=== PATIENT | female | born 1960 | race Two or more races ===

== ENCOUNTER 2018-11-15 09:26 | Emergency (ER) | payer BC, MEDICAID ==
--- NOTE | 2018-11-15 09:56 | ER Document Report ---
ED Oral Problem - General Chief Complaint: Toothache Stated Complaint: MOUTH PAIN Time Seen by Provider: 11/15/18 09:42 Mode of Arrival: Ambulatory Information source: Patient Notes: Patient is a 58-year-old female comes emergency room with 2-day onset of left lower dental pain with swelling. Patient states that the chin area on the left side swelled up really bad yesterday and she has some diffuse pain in the lower area. She has been putting on Orajel which relieves it for a few minutes then it returns. She denies any fevers at this present time. Patient states she has a history of hypertension but she only takes home remedies for it. She is a traveling person going between [place] and [place]. She states that her medical records are not caught up with her yet. TRAVEL OUTSIDE OF THE [place] IN LAST 30 DAYS: No - HPI Patient complains to provider of: Jaw pain, Swelling of jaw Onset: Other - 2 days Onset: Gradual Quality of pain: Sharp, Throbbing Pain Level: 4 Swollen jaw/face: Mild Associated symptoms: Chills, Facial pain, Toothache Worsened by: Heat Relieved by: Orajel Similar symptoms previously: Yes Recently seen / treated by doctor/dentist: No - Related Data Allergies/Adverse Reactions: ampicillin [Ampicillin] Allergy (Verified 11/15/18 09:28) swelling clindamycin [Clindamycin] Allergy (Verified 11/15/18 09:28) swelling morphine [Morphine] Allergy (Verified 11/15/18 09:28) Hives Penicillins Allergy (Verified 11/15/18 09:28) unknown Sulfa (Sulfonamide Antibiotics) Allergy (Verified 11/15/18 09:28) swelling Past Medical History - General Information source: Patient - Social History Smoking Status: Current Some Day Smoker Cigarette use (# per day): Yes - Socially when stressed Chew tobacco use (# tins/day): No Smoking Education Provided: Yes Frequency of alcohol use: Rare Drug Abuse: None Lives with: Alone Family History: Reviewed & Not Pertinent, CAD - Past Medical History Cardiac Medical History: Reports: Hx Hypercholesterolemia, Hx Hypertension Denies: Hx Heart Attack Pulmonary Medical History: Reports: Hx Sleep Apnea Denies: Hx Asthma Neurological Medical History: Denies: Hx Cerebrovascular Accident, Hx Seizures Endocrine Medical History: Reports: Hx Diabetes Mellitus Type 2 - diet con trolled new diagnosis GI Medical History: Denies: Hx Hepatitis, Hx Hiatal Hernia, Hx Ulcer Infectious Medical History: Denies: Hx Hepatitis Past Surgical History: Reports: Hx Hysterectomy. Denies: Hx Mastectomy, Hx Open Heart Surgery, Hx Pacemaker Review of Systems - Review of Systems Constitutional: No symptoms reported EENT: See HPI, Mouth swelling, Dental problem Cardiovascular: No symptoms reported Respiratory: No symptoms reported Gastrointestinal: No symptoms reported Genitourinary: No symptoms reported Female Genitourinary: No symptoms reported Musculoskeletal: No symptoms reported Skin: No symptoms reported Hematologic/Lymphatic: No symptoms reported Neurological/Psychological: No symptoms reported -: Yes All other systems reviewed and negative Physical Exam - Vital signs Vitals: Temp Pulse Resp BP Pulse Ox 98.9 F 97 18 146/111 H 96 11/15/18 09:31 11/15/18 09:31 11/15/18 09:31 11/15/18 09:31 11/15/18 09:31 Interpretation: Hypertensive - Notes Notes: PHYSICAL EXAMINATION: GENERAL: Patient is a well-nourished well-developed 58-year-old morbidly obese female who is in no apparent distress on physical examination this morning. She does appear somewhat uncomfortable. HEAD:, normocephalic. Examination patient's facial features so that she does have some mild swelling traveling from about mid mandible on the left side down to the chin but not crossing midline. Mostly along the gumline area. Swelling is just visible. EYES: Pupils equal round and reactive to light, extraocular movements intact, conjunctiva are normal. ENT: Nares patent, oropharynx clear without exudates. Further examination of the dental shows that patient is missing most of the teeth on the back lower left area although the gum is moderately erythematous with no sign of a discharge or abscess formation. There is some tenderness when palpation of the gum tooth line area with one finger inside and when outside you can feel a slight induration but is not fluctuant. Believe it is more of a inflamed tissue at present. Patient's dental presentation shows moderate amount of gingivitis and decayed teeth extending from approximately tooth 17-24. Although there is no overt abscess seen or felt. Source of infection probable secondary to gingivitis. NECK: Normal range of motion, supple without lymphadenopathy LUNGS: Breath sounds clear to auscultation bilaterally and equal. No wheezes rales or rhonchi. HEART: Regular rate and rhythm without murmurs Female : deferred Musculoskeletal: Normal range of motion, no pitting or edema. No cyanosis. NEUROLOGICAL: Normal speech, normal gait. Normal sensory, motor exams PSYCH: Normal mood, normal affect. SKIN: Warm, Dry, normal turgor, no rashes or lesions noted. Course - Re-evaluation Re-evalutation: 11/15/18 09:59 Patient's stay in ER was relatively uneventful. I did look patient up on the [facility] aware line. She does not have any type of major narcotic seeking behavior. Last time she received anything was in December 2017 she had 30 tramadol. Other than that she is not received hardly anything some some cough syrup. So today because of the swelling that I can feel going to go ahead and treat her for a dental infection will put her on some doxycycline since she is allergic to most everything else. I will give her a few medications for pain. But that is why I did look her up on the [facility] aware line. - Vital Signs Vital signs: Temp Pulse Resp BP Pulse Ox 98.9 F 97 18 146/111 H 96 11/15/18 09:31 1218 09:31 11/15/18 09:31 11/15/18 09:31 11/15/18 09:31 Discharge - Discharge Clinical Impression: Dental infection Condition: Stable Disposition: HOME, SELF-CARE Instructions: [facility], Oral Narcotic Medication ([facility]), Dental Infection or Abscess ([facility]) Additional Instructions: Dental Infection or Abscess You have an infection, perhaps an abscess (pus formation) of the gum around one of your teeth, which is probably decayed. If there is an abscess, it may drain on its own or it may need to be opened or lanced. Severe swelling or drainage around a tooth usually means a deep dental abscess which usually requires evaluation and treatment by a dentist or oral surgeon. Antibiotics may be prescribed while awaiting dental treatment. If you develop high fever with chills, worsening pain, or increasing swelling in the area, see a dentist or oral surgeon immediately or return to the Emergency Department immediately. I believe that the area that is swollen is related to an infection of the mouth most likely originating from dental some wear and at lower bottom left side. I am placing you on doxycycline as the antibiotic of choice. I have given you a follow-up number that if you do not have a dentist or have difficulty with any type of insurance or if you do not have insurance the [facility] has resources for a dentist. You may continue using ibuprofen 800 mg every 8 hours for the inflammation and pain along with the pain medication that I am giving you. I highly suggest that you contact the dentist as soon as possible for follow-up. Should you have any concerns or problems over the holidays please return to ER for a recheck. Prescriptions: Doxycycline Hyclate 100 mg PO BID #20 capsule Hydrocodone/Acetaminophen [Cameron 5-325 Tablet] 1 each PO Q4 PRN #12 tablet PRN Reason: Forms: Elevated Blood Pressure, Smoking Cessation Education Referrals: SHAKIR HERNANDEZ MD [ACTIVE STAFF] - [facility] as [facility] - Follow up as needed
[2018-11-15 10:21] VITALS: BP 191/87
== END 2018-11-15 10:21 | disposition home or self-care (01) ==
LOC: ER 09:26
DX: K04.7 Periapical abscess without sinus (principal); K05.10 Chronic gingivitis, plaque induced; K02.9 Dental caries, unspecified; K08.89 Other specified disorders of teeth and supporting structures; I10 Essential (primary) hypertension; R68.83 Chills (without fever); F17.210 Nicotine dependence, cigarettes, uncomplicated; E11.9 Type 2 diabetes mellitus without complications; E66.01 Morbid (severe) obesity due to excess calories; Z88.0 Allergy status to penicillin; Z88.1 Allergy status to other antibiotic agents; Z88.2 Allergy status to sulfonamides; Z88.5 Allergy status to narcotic agent
CPT/HCPCS: 99282